=== PATIENT | male | born 1965 ===

== ENCOUNTER 2021-05-03 | Emergency (ER) | payer BC ==
[2021-05-03 00:40] LABS: HEMOGLOBIN 16.1 gm/dl (14.0-17.5); RED BLOOD COUNT 4.85 M/UL (4.20-5.50); WHITE BLOOD COUNT 9.4 K/UL (4.5-11.0)
[2021-05-03 01:01] LABS: BUN/CREATININE RATIO 14 (0-10)
[2021-05-03] MEDS ORDERED: IBUPROFEN600 MG PO (03:29)
== END 2021-05-03 03:40 | disposition home or self-care (01) ==
LOC: ER1
PROVIDERS: Internal Medicine
DX: R07.9 Chest pain, unspecified (principal); F17.210 Nicotine dependence, cigarettes, uncomplicated
CPT/HCPCS: 71046; 80053; 82550; 82553; 84484; 85025; 93005; 99285